=== PATIENT | male | born 1990 | race Caucasian/White ===

== ENCOUNTER 2018-11-04 00:49 | Emergency (ER) | payer OTHER ==
[2018-11-04 00:54] VITALS: BP 121/75; PULSE 73; RESP 16; TEMP 98
[2018-11-04] MEDS ORDERED: ONDANSETRON 4 MG ODT STARTER PACK 2 TAB BTL PO STA (01:13)
--- NOTE | 2018-11-04 01:29 | ED ---
General Adult HPI - General Source: patient, RN notes reviewed Mode of arrival: ambulatory Limitations: no limitations <Rohit Saldana P - Last Filed: 11/04/18 01:18> <Rena Ulloa P - Last Filed: 11/04/18 05:39> - General Chief complaint: Nausea/Vomiting/Diarrhea Stated complaint: [facility] Nausea Time Seen by Provider: 11/04/18 01:09 - History of Present Illness Initial comments: 28-year-old male presents to the emergency department for a chief complaint of nausea and vomiting. Patient states this has been going on for less than one day. He states he was at work when he started to feel nauseous and vomited 3 times throughout the day. He states that this was work was concerned with him vomiting there and wanted him to go home. He states that the only way he could leave without getting a point is to be seen. He states he has mild nausea at this time but generally feels well. He denies any abdominal pain whatsoever. Denies any diarrhea. He did have a normal bowel movement earlier today and is urinating normally. Patient has no other complaints at this time including shortness of breath, chest pain, abdominal pain, headache, or visual changes. (Rohit Saldana) - Related Data Previous Rx's Medication Instructions Recorded Azithromycin [Zithromax Z-pack] 0 mg PO DIRECTED #6 tab 03/25/14 Allergies Allergy/AdvReac Type Severity Reaction Status Date / Time No Known Allergies Allergy Verified 11/04/18 00:54 Review of Systems ROS Other: All systems not noted in ROS Statement are negative. <Rohit Saldana P - Last Filed: 11/04/18 01:18> ROS Other: All systems not noted in ROS Statement are negative. <Rena Ulloa P - Last Filed: 11/04/18 05:39> ROS Statement: Those systems with pertinent positive or pertinent negative responses have been documented in the HPI. Past Medical History Past Medical History: No Reported History History of Any Multi-Drug Resistant Organisms: None Reported Past Surgical History: No Surgical Hx Reported Past Psychological History: ADD/ADHD Smoking Status: Never smoker Past Alcohol Use History: Occasional Past Drug Use History: None Reported <Rohit Saldana - Last Filed: 11/04/18 01:18> General Exam Limitations: no limitations General appearance: alert, in no apparent distress Head exam: Present: atraumatic, normocephalic, normal inspection Eye exam: Present: normal appearance, PERRL, EOMI. Absent: scleral icterus, conjunctival injection, periorbital swelling ENT exam: Present: normal exam, mucous membranes moist Neck exam: Present: normal inspection, full ROM. Absent: tenderness, meningismus, lymphadenopathy Respiratory exam: Present: normal lung sounds bilaterally. Absent: respiratory distress, wheezes, rales, rhonchi, stridor Cardiovascular Exam: Present: regular rate, normal rhythm, normal heart sounds. Absent: systolic murmur, diastolic murmur, rubs, gallop, clicks GI/Abdominal exam: Present: soft, normal bowel sounds. Absent: distended, tenderness (No tenderness noted of the abdomen whatsoever), guarding, rebound, rigid Neurological exam: Present: alert, oriented X3, CN II-XII intact Psychiatric exam: Present: normal affect, normal mood <Rohit Saldana P - Last Filed: 11/04/18 01:18> Vital Signs 11/04/18 00:50 Temperature 98 F Pulse Rate 73 Respiratory 16 Rate Blood Pressure 121/75 O2 Sat by Pulse 99 Oximetry Medical Decision Making <Rohit Saldana P - Last Filed: 11/04/18 01:18> <Rena Ulloa P - Last Filed: 11/04/18 05:39> - Medical Decision Making 28-year-old male presents to the emergency department for a chief complaint of vomiting 3 episodes. Patient otherwise feels well here. He is a little nauseous. He states he had to be evaluated in order to go home from work. He states he does not want blood work done at this time. He states he just needs a note for work. Patient was well-appearing on exam. Does not appear clinically dehydrated. Mucous members are moist. Vitals are within acceptable limits. Patient is not tachycardic and blood pressure is normotensive. Patient given Zofran, tolerated by mouth challenge. Patient will be discharged home with follow-up to primary care. However did discuss returning if he has worsening symptoms or any abdominal pain. (Rohit Saldana) I was available for consultation in the emergency department. The history and physical exam were done by the midlevel provider. I was consulted for this patient's care. I reviewed the case with the midlevel provider and based on their presentation of the patient, I agree with the assessment, medical decision making and plan of care as documented. (Rena Ulloa) Disposition Is patient prescribed a controlled substance at d/c from ED?: No Time of Disposition: 01:28 <Rohit Saldana P - Last Filed: 11/04/18 01:18> <Rena Ulloa P - Last Filed: 11/04/18 05:39> Clinical Impression: Nausea and vomiting Disposition: HOME SELF-CARE Condition: Good Instructions (If sedation given, give patient instructions): Acute Nausea and Vomiting (ED) Additional Instructions: Please take Zofran as needed for nausea. Please drink plenty of fluids. Eat a bland diet such as bananas, rice, applesauce, toast. Follow-up with primary care in 1-2 days. Return to the emergency department if you have any worsening symptoms. Referrals: Naomi Lang MD [REFERRING] - 1-2 days
== END 2018-11-04 02:53 | disposition home or self-care (01) ==
LOC: EC 00:49
DX: R11.2 Nausea with vomiting, unspecified (principal)
CPT/HCPCS: 99283; S0119

== ENCOUNTER 2019-11-14 13:48 | Emergency (ER) | payer OTHER ==
[2019-11-14 13:51] VITALS: RESP 20; TEMP 99.1
--- NOTE | 2019-11-14 14:53 | XR ---
EXAMINATION TYPE: XR chest 2V DATE OF EXAM: 11/14/2019 COMPARISON: 03/25/2014 HISTORY: Cough TECHNIQUE: Frontal and lateral views of the chest are obtained. FINDINGS: There is no focal air space opacity, pleural effusion, or pneumothorax seen. The cardiac silhouette size is within normal limits. The osseous structures are intact. IMPRESSION: No acute cardiopulmonary process.
--- NOTE | 2019-11-14 15:05 | ED ---
General Adult HPI - General Chief complaint: Upper Respiratory Infection Stated complaint: fever/cough Time Seen by Provider: 11/14/19 14:10 Source: patient, RN notes reviewed Mode of arrival: ambulatory Limitations: no limitations - History of Present Illness Initial comments: 29-year-old male presents to the emergency determine for a chief complaint of cough and congestion. This has been ongoing for about 2 days. He denies any chest pain or shortness of breath. Patient states he needs a note to return to work. Patient states he feels as if he has had low-grade fevers at home. Patient does not have a history of any foreign or domestic travel.Patient has no other complaints at this time including shortness of breath, chest pain, abdominal pain, nausea or vomiting, headache, or visual changes. - Related Data Previous Rx's Medication Instructions Recorded Azithromycin [Zithromax Z-pack] 0 mg PO DIRECTED #6 tab 03/25/14 Allergies Allergy/AdvReac Type Severity Reaction Status Date / Time No Known Allergies Allergy Verified 11/14/19 13:51 Review of Systems ROS Statement: Those systems with pertinent positive or pertinent negative responses have been documented in the HPI. ROS Other: All systems not noted in ROS Statement are negative. Past Medical History Past Medical History: No Reported History History of Any Multi-Drug Resistant Organisms: None Reported Past Surgical History: No Surgical Hx Reported Past Psychological History: ADD/ADHD Smoking Status: Current every day smoker Past Alcohol Use History: Occasional Past Drug Use History: None Reported General Exam Limitations: no limitations General appearance: alert, in no apparent distress Head exam: Present: atraumatic, normocephalic, normal inspection Eye exam: Present: normal appearance, PERRL, EOMI. Absent: scleral icterus, conjunctival injection, periorbital swelling ENT exam: Present: normal exam, normal oropharynx, mucous membranes moist, TM's normal bilaterally, normal external ear exam Neck exam: Present: normal inspection, full ROM. Absent: tenderness, meningismus, lymphadenopathy Respiratory exam: Present: normal lung sounds bilaterally. Absent: respiratory distress, wheezes, rales, rhonchi, stridor Cardiovascular Exam: Present: regular rate, normal rhythm, normal heart sounds. Absent: systolic murmur, diastolic murmur, rubs, gallop, clicks Course Vital Signs 11/14/19 13:49 Temperature 99.1 F Pulse Rate 101 H Respiratory 20 Rate Blood Pressure 132/89 O2 Sat by Pulse 96 Oximetry Medical Decision Making - Medical Decision Making Patient is a well-appearing male sitting up in bed. No respiratory distress. Lungs are clear to auscultation bilaterally. Patient afebrile here in the emergency department. Influenza is negative. Chest x-ray shows no acute cardiopulmonary process. At this time patient likely has viral upper respiratory infection. Recommend he follow up with his doctor in one to 2 days. He can return to work after 24 hours fever free. - Lab Data Lab Results 11/14/19 Range/Units 14:23 Influenza Type A RNA Not Detected (Not Detectd) Influenza Type B (PCR) Not Detected (Not Detectd) Disposition Clinical Impression: Cough Disposition: HOME SELF-CARE Condition: Good Instructions (If sedation given, give patient instructions): Acute Cough (ED) Additional Instructions: Take Motrin and Tylenol for fever. Drink plenty of fluids. Please follow up with primary care in 1-2 days. Return to the emergency department for any worsening symptoms. Is patient prescribed a controlled substance at d/c from ED?: No Referrals: Naomi Lang MD [Primary Care Provider] - 1-2 days Time of Disposition: 15:04
[2019-11-14 15:13] VITALS: BP 128/79; PULSE 99
== END 2019-11-14 15:13 | disposition home or self-care (01) ==
LOC: EC 13:48
DX: R05 Cough (principal); R50.9 Fever, unspecified; R09.89 Other specified symptoms and signs involving the circulatory and respiratory systems; F17.200 Nicotine dependence, unspecified, uncomplicated
CPT/HCPCS: 71046; 87502; 99283

== ENCOUNTER 2023-06-21 19:17 | Emergency (ER) | payer OTHER ==
--- NOTE | 2023-06-21 20:02 | ED ---
Upper Extremity HPI - General Chief Complaint: Extremity Injury, Upper Stated Complaint: [facility] - L Shoulder Injury Time Seen by Provider: 06/21/23 19:59 Source: patient, RN notes reviewed Mode of arrival: ambulatory Limitations: no limitations - History of Present Illness Initial Comments: This is a 32 year old male who presents to the emergency department for a left shoulder injury. States that a machine jammed at work earlier today, and he pulled out a piece of metal. He had shoulder pain immediately afterwards, however it was not severe. He has noticed that as he continued to work, the shoulder has become increasingly more painful. He is still able to fully move the arm. He is right handed. MD Complaint: Injury to:: left, shoulder - Related Data Previous Rx's Medication Instructions Recorded Azithromycin [Zithromax Z-pack (6 0 mg PO DIRECTED #6 tab 03/25/14 tabs)] Allergies Allergy/AdvReac Type Severity Reaction Status Date / Time No Known Allergies Allergy Verified 06/21/23 20:00 Review of Systems ROS Statement: Those systems with pertinent positive or pertinent negative responses have been documented in the HPI. ROS Other: All systems not noted in ROS Statement are negative. Past Medical History Past Medical History: No Reported History History of Any Multi-Drug Resistant Organisms: None Reported Past Surgical History: No Surgical Hx Reported Past Psychological History: ADD/ADHD Past Alcohol Use History: Occasional Past Drug Use History: None Reported General Exam - General Exam Comments Initial Comments: Visual Physical Exam Vital signs reviewed General: Well-appearing, nontoxic, no acute distress. Head: Normocephalic, atraumatic Eyes: PERRLA, EOMI ENT: Airway patent Chest: Nonlabored breathing Skin: No visual rash, normal skin tone Neuro: Alert and oriented 3 Musculoskeletal: No gross abnormalities I performed the QuickNote portion of this chart. Signed Magi Kumar PA-C. Limitations: no limitations General appearance: alert, in no apparent distress Head exam: Present: atraumatic, normocephalic, normal inspection Respiratory exam: Present: normal lung sounds bilaterally. Absent: respiratory distress, wheezes, rales, rhonchi, stridor Cardiovascular Exam: Present: regular rate, normal rhythm, normal heart sounds. Absent: systolic murmur, diastolic murmur, rubs, gallop, clicks Extremities exam: Present: other (No deformities to the left arm or shoulder. Minor tenderness to palpation over the left AC joint. Full range of motion. 2+ DP and PT pulses. Capillary refill less than 1 second.) Neurological exam: Present: alert, oriented X3, CN II-XII intact Psychiatric exam: Present: normal affect, normal mood Skin exam: Present: warm, dry, intact, normal color. Absent: rash Course Vital Signs 06/21/23 20:00 Temperature 98.2 F Pulse Rate 73 Respiratory 18 Rate Blood Pressure 116/82 O2 Sat by Pulse 98 Oximetry Medical Decision Making - Medical Decision Making This is a 32-year-old male who presents to the emergency department for left shoulder pain. Was pt. sent in by a medical professional or institution? @ -No Did you speak to anyone other than the patient for history? @ -No Did you review nursing and triage notes? @ -Yes, and I agree, it is accurate with regards to the patient's symptoms. Were old charts reviewed? @ -No Differential Diagnosis? @ -Differential Shoulder Injury: Fracture, dislocation, contusion, rotator cuff injury, AC joint separation, sprain, this is not meant to be an all-inclusive list. EKG interpreted by me (3pts min.)? @ -Not obtained X-rays interpreted by me (1pt min.)? @ -X-ray of the left shoulder obtained. My interpretation identifies no acute fractures or dislocations. CT interpreted by me (1pt min.)? @ -Not obtained U/S interpreted by me (1pt. min.)? @ -Not obtained What testing was considered but not performed? (CT, X-rays, U/S, labs)? Why? @ -None What meds were considered but not given? Why? @ -None Did you discuss the management of the patient with other professionals? @ -No Did you reconcile home meds? @ -No Was smoking cessation discussed for >3mins.? @ -No Was critical care preformed (if so, how long)? @ -No Were there social determinants of health that impacted care today? How? (Homelessness, low income, unemployed, alcoholism, drug addiction, transportation, low edu. Level, literacy, decrease access to med. care, retirement, rehab)? @ -No Was there de-escalation of care discussed even if they declined? (Discuss DNR or withdrawal of care, Hospice)? @ -No What co-morbidities impacted this encounter? (DM, HTN, Smoking, COPD, CAD, Cancer, CVA, Hep., AIDS, mental health diagnosis, sleep apnea, morbid obesity)? @ -None Was patient admitted / discharged? @ -Discharged. X-ray of the left shoulder obtained revealing no acute findings. Patient had full range of motion on physical examination and he declined the need for pain medication in the emergency department. I did also offer an arm sling, however he also declined. Advised ibuprofen and Tylenol as needed for pain relief and applying ice for 15-20 minutes every 2-3 hours. Patient discharged home in stable condition. Undiagnosed new problem with uncertain prognosis? @ -None Drug Therapy requiring intensive monitoring for toxicity (Heparin, Nitro, Insulin, Cardizem)? @ -None Were any procedures done? @ -None Diagnosis/symptom? @ -Left shoulder pain Acute, or Chronic, or Acute on Chronic? @ -Acute Uncomplicated (without systemic symptoms) or Complicated (systemic symptoms)? @ -Uncomplicated Side effects of treatment? @ -None Exacerbation, Progression, or Severe Exacerbation] @ -Not applicable Poses a threat to life or bodily function? @ -The pain may have a minor impact on his use of the left arm. Return precautions reviewed in depth, the patient is instructed to return to the emergency department with any new, worsening, or concerning symptoms. Patient verbalized understanding. This case was discussed in detail with the attending ED physician, Dr. Fontaine. Presentation, findings, and treatment plan discussed in detail as well. - Radiology Data Radiology results: report reviewed, image reviewed Disposition Clinical Impression: Left shoulder strain Disposition: HOME SELF-CARE Instructions (If sedation given, give patient instructions): Rotator Cuff Injury (ED), Shoulder Sprain (ED) Additional Instructions: Return to the emergency department with any new, worsening, or concerning symptoms. Alternate with ibuprofen and Tylenol as needed for pain relief. You can also apply ice for 15-20 minutes every 2-3 hours. Follow up with your primary care provider in 1-2 days. Is patient prescribed a controlled substance at d/c from ED?: No Referrals: Nonstaff,Physician [REFERRING] - 1-2 days
[2023-06-21 20:14] VITALS: BP 116/82; PULSE 73; RESP 18; TEMP 98.2
--- NOTE | 2023-06-21 21:17 | XR ---
PROCEDURE: XR shoulder complete LT - 3V DATE AND TIME: 06/21/2023 8:19 PM CLINICAL INDICATION: [facility]; Injury TECHNIQUE: Department protocol COMPARISON: None FINDINGS: There is no fracture or malalignment. The soft tissues are unremarkable. IMPRESSION: NO ACUTE PROCESS.
== END 2023-06-21 22:21 | disposition home or self-care (01) ==
LOC: EC 19:17
DX: S46.912A Strain of unspecified muscle, fascia and tendon at shoulder and upper arm level, left arm, initial encounter (principal); Z86.59 Personal history of other mental and behavioral disorders; W23.1XXA Caught, crushed, jammed, or pinched between stationary objects, initial encounter
CPT/HCPCS: 99283

== ENCOUNTER → 2023-07-10 | Outpatient (CLI) | payer OTHER ==
--- NOTE | 2023-07-10 10:20 | MR ---
EXAMINATION TYPE: MR shoulder LT wo con DATE OF EXAM: 07/10/2023 COMPARISON: X-ray 06/21/2023 HISTORY: Lt shoulder Pain TECHNIQUE: Multiplanar, multisequence imaging of the left shoulder is performed without contrast. FINDINGS: Rotator Cuff: There is thickening and increased signal near the insertion of the subscapularis tendon and along the anterior fibers near the insertion of the infraspinatus tendon compatible with tendino sis. Small amount of fluid in the subacromial bursa. Infraspinatus tendon is intact. There is no evid ence of a through thickness tear or retraction of the rotator cuff tendons. Acromioclavicular Joint: There is a small sliver spur downsloping of the acromion resulting in mild m ass effect upon the supraspinatus tendon and muscle. Glenohumeral Joint: A trace amount of fluid. Glenohumeral ligaments are intact. Labrum: The labrum appears grossly intact given limitation of non-arthrogram study. Biceps Tendon: The long head of biceps is in normal location within bicipital groove. Bone marrow signal: No focal abnormal marrow signal is appreciated. Other: No additional significant abnormality is appreciated. IMPRESSION: 1. Impingement with mild tendinosis of the supraspinatus and subscapularis tendons. No through thickn ess tear or retraction.
== END | disposition home or self-care (01) ==
LOC: RADMRIMAIN 08:53
PROVIDERS: ATTEND Emergency Medicine
DX: S46.912A Strain of unspecified muscle, fascia and tendon at shoulder and upper arm level, left arm, initial encounter (principal); M67.814 Other specified disorders of tendon, left shoulder; M25.812 Other specified joint disorders, left shoulder